=== PATIENT | female | born 1930 | race Caucasian/White ===

== ENCOUNTER → 2016-05-24 | Outpatient (CLI) | payer MEDICARE, OTHER | LOC: LAB 07:03 | DX: Z51.81 Encounter for therapeutic drug level monitoring (principal); Z79.01 Long term (current) use of anticoagulants; I48.91 Unspecified atrial fibrillation; I50.30 Unspecified diastolic (congestive) heart failure ==

== ENCOUNTER → 2016-06-21 | Outpatient (CLI) | payer MEDICARE, OTHER | LOC: VAS 16:36 | DX: I35.0 Nonrheumatic aortic (valve) stenosis (principal); I08.3 Combined rheumatic disorders of mitral, aortic and tricuspid valves ==

== ENCOUNTER → 2016-06-24 | Outpatient (CLI) | payer MEDICARE, OTHER | LOC: LAB 07:05 | DX: I50.30 Unspecified diastolic (congestive) heart failure (principal); I48.91 Unspecified atrial fibrillation ==

== ENCOUNTER → 2016-07-22 | Outpatient (CLI) | payer MEDICARE, OTHER | LOC: LAB 07:03 | DX: Z51.81 Encounter for therapeutic drug level monitoring (principal); Z79.01 Long term (current) use of anticoagulants; I48.91 Unspecified atrial fibrillation ==

== ENCOUNTER → 2016-08-23 | Outpatient (CLI) | payer MEDICARE, OTHER | LOC: LAB 08:18 | DX: Z51.81 Encounter for therapeutic drug level monitoring (principal); Z79.01 Long term (current) use of anticoagulants; I50.30 Unspecified diastolic (congestive) heart failure ==

== ENCOUNTER → 2016-09-06 | Outpatient (CLI) | payer MEDICARE, OTHER | LOC: LAB 07:32 | DX: Z51.81 Encounter for therapeutic drug level monitoring (principal); Z79.01 Long term (current) use of anticoagulants; I48.1 Persistent atrial fibrillation ==

== ENCOUNTER → 2016-10-01 | Outpatient (CLI) | payer MEDICARE, OTHER | LOC: LAB 07:11 | DX: Z51.81 Encounter for therapeutic drug level monitoring (principal); Z79.01 Long term (current) use of anticoagulants; I48.91 Unspecified atrial fibrillation; I10 Essential (primary) hypertension; I50.30 Unspecified diastolic (congestive) heart failure; Z00.00 Encounter for general adult medical examination without abnormal findings; R53.83 Other fatigue ==

== ENCOUNTER → 2016-10-15 | Outpatient (CLI) | payer MEDICARE, OTHER | LOC: LAB 07:07 | DX: Z51.81 Encounter for therapeutic drug level monitoring (principal); Z79.01 Long term (current) use of anticoagulants; I48.91 Unspecified atrial fibrillation; I50.30 Unspecified diastolic (congestive) heart failure ==

== ENCOUNTER → 2016-11-12 | Outpatient (CLI) | payer MEDICARE, OTHER | LOC: LAB 07:07 | DX: Z51.81 Encounter for therapeutic drug level monitoring (principal); Z79.01 Long term (current) use of anticoagulants; I48.91 Unspecified atrial fibrillation; I50.30 Unspecified diastolic (congestive) heart failure ==

== ENCOUNTER → 2016-12-10 | Outpatient (CLI) | payer MEDICARE, OTHER | LOC: LAB 07:19 | DX: Z51.81 Encounter for therapeutic drug level monitoring (principal); Z79.01 Long term (current) use of anticoagulants; I50.30 Unspecified diastolic (congestive) heart failure; I48.91 Unspecified atrial fibrillation ==

== ENCOUNTER → 2017-01-06 | Outpatient (CLI) | payer MEDICARE, OTHER | LOC: LAB 07:12 | DX: I48.91 Unspecified atrial fibrillation (principal) ==

== ENCOUNTER → 2017-01-17 | Outpatient (CLI) | payer MEDICARE, OTHER | LOC: LAB 07:21 | DX: I48.91 Unspecified atrial fibrillation (principal) ==

== ENCOUNTER → 2017-01-24 | Outpatient (CLI) | payer MEDICARE, OTHER | LOC: LAB 07:30 | DX: I48.91 Unspecified atrial fibrillation (principal) ==

== ENCOUNTER → 2017-02-23 | Outpatient (CLI) | payer MEDICARE, OTHER ==
[2017-02-23 09:42] LABS: PROTHROMBIN TIME 29.5 SECONDS (9.0-12.0)
== END ==
LOC: LAB 08:57
PROVIDERS: Family Medicine
DX: I48.91 Unspecified atrial fibrillation (principal)

== ENCOUNTER → 2017-03-28 | Outpatient (CLI) | payer MEDICARE, OTHER ==
[2017-03-28 07:59] LABS: PROTHROMBIN TIME 22.3 SECONDS (9.0-12.0)
== END ==
LOC: LAB 07:32
PROVIDERS: Family Medicine
DX: I48.91 Unspecified atrial fibrillation (principal); Z79.01 Long term (current) use of anticoagulants

== ENCOUNTER → 2017-04-25 | Outpatient (CLI) | payer MEDICARE, OTHER ==
[2017-04-25 10:31] LABS: PROTHROMBIN TIME 29.5 SECONDS (9.0-12.0)
== END ==
LOC: LAB 09:41
PROVIDERS: Family Medicine
DX: I48.91 Unspecified atrial fibrillation (principal)

== ENCOUNTER → 2017-05-23 | Outpatient (CLI) | payer MEDICARE, OTHER | LOC: LAB 07:12 | PROVIDERS: Family Medicine | DX: I48.91 Unspecified atrial fibrillation (principal) ==

== ENCOUNTER → 2017-06-20 | Outpatient (CLI) | payer MEDICARE, OTHER ==
[2017-06-20 09:35] LABS: PROTHROMBIN TIME 47.2 SECONDS (9.0-12.0)
== END ==
LOC: LAB 07:17
PROVIDERS: Family Medicine
DX: I48.91 Unspecified atrial fibrillation (principal)

== ENCOUNTER → 2017-06-27 | Outpatient (CLI) | payer MEDICARE, OTHER, MEDICAID ==
[2017-06-27 07:45] LABS: PROTHROMBIN TIME 21.2 SECONDS (9.0-12.0)
== END ==
LOC: LAB 07:20
PROVIDERS: Family Medicine
DX: I48.91 Unspecified atrial fibrillation (principal)

== ENCOUNTER → 2017-07-25 | Outpatient (CLI) | payer MEDICARE, MEDICAID | LOC: LAB 07:15 | PROVIDERS: Family Medicine | DX: I48.91 Unspecified atrial fibrillation (principal) ==

== ENCOUNTER → 2017-08-22 | Outpatient (CLI) | payer MEDICARE, MEDICAID ==
[2017-08-22 07:54] LABS: PROTHROMBIN TIME 24.8 SECONDS (9.0-12.0)
== END ==
LOC: LAB 07:24
PROVIDERS: Family Medicine
DX: I48.91 Unspecified atrial fibrillation (principal); Z88.1 Allergy status to other antibiotic agents; Z88.2 Allergy status to sulfonamides; Z88.8 Allergy status to other drugs, medicaments and biological substances

== ENCOUNTER → 2017-09-21 | Outpatient (CLI) | payer MEDICARE, MEDICAID ==
[2017-09-21 07:42] LABS: PROTHROMBIN TIME 20.9 SECONDS (9.0-12.0)
== END ==
LOC: LAB 07:19
PROVIDERS: Family Medicine
DX: I48.0 Paroxysmal atrial fibrillation (principal); Z79.01 Long term (current) use of anticoagulants

== ENCOUNTER → 2017-10-21 | Outpatient (CLI) | payer MEDICARE, MEDICAID ==
[2017-10-21 08:19] LABS: PROTHROMBIN TIME 24.7 SECONDS (9.0-12.0)
== END ==
LOC: LAB 07:13
PROVIDERS: Family Medicine
DX: I48.91 Unspecified atrial fibrillation (principal)

== ENCOUNTER 2017-11-15 14:04 | Emergency (ER) | payer MEDICARE, MEDICAID ==
[2017-11-15] MEDS ORDERED: AMLODIPINE BESY10 MG PO (14:24)
[2017-11-15] MEDS ORDERED: DOC-Q-LACE100 MG PO (14:25)
[2017-11-15] MEDS ORDERED: FUROSEMIDE20 MG PO (14:25)
[2017-11-15] MEDS ORDERED: GLUCOSAMINE & C1 TAB PO (14:25)
[2017-11-15] MEDS ORDERED: COENZYME Q-1030 MG PO (14:25)
[2017-11-15] MEDS ORDERED: DURAGESIC25 MCG/PAT TD (14:25)
[2017-11-15] MEDS ORDERED: MELATONIN5 M4 PO (14:26)
[2017-11-15] MEDS ORDERED: METOPROLOL SUCC25 M1 PO (14:26)
[2017-11-15] MEDS ORDERED: LOSARTAN POTAS100 MG PO (14:26)
[2017-11-15] MEDS ORDERED: WARFARIN SODIU7.5 MG PO (14:27)
[2017-11-15] MEDS ORDERED: SERTRALINE50 MG PO (14:27)
[2017-11-15 14:56] LABS: EOS % 0.8 % (1.0-5.0); HEMATOCRIT 31.1 % (37.0-47.0); HEMOGLOBIN 10.3 g/dL (12.5-16.0); MEAN CELL VOLUME 86 fl (78-100); MEAN CORPUSCULAR HEMOGLOBIN 29 pg (27-31); MEAN CORPUSCULAR HGB CONC 33 g/dL (33-37); MEAN PLATELET VOLUME 9.9 fl (7.4-10.4); MONO # 0.5 (0.20-0.80); NEU # 3.7 (1.40-6.50); PLATELET COUNT 214 K/mm3 (130-400); RED CELL DISTRIBUTION WIDTH 15.8 % (11.5-14.5); WHITE BLOOD COUNT 4.9 K/mm3 (4.8-10.8)
[2017-11-15 15:00] LABS: LYMPH# 0.6 (1.50-4.00)
[2017-11-15 15:08] LABS: BUN/CREATININE RATIO 24.2 (6.0-26.0); CALCIUM 8.4 mg/dL (8.4-10.2); POTASSIUM 4.5 mmol/L (3.6-5.0); TOTAL BILIRUBIN 0.7 mg/dL (0.2-1.3); TOTAL PROTEIN 7.2 g/dL (6.3-8.2)
[2017-11-15 15:14] LABS: PROTHROMBIN TIME 33.5 SECONDS (9.0-12.0)
[2017-11-15 15:21] LABS: D-DIMER 0.22 mg/L FEU (0.15-0.50)
[2017-11-15 15:32] LABS: URINE COLOR YELLOW
[2017-11-15 15:33] LABS: URINE APPEARANCE HAZY; URINE BILIRUBIN NEGATIVE (NEGATIVE); URINE BLOOD TRACE (NEGATIVE); URINE GLUCOSE NEGATIVE (NEGATIVE); URINE KETONE NEGATIVE (NEGATIVE); URINE LEUKOCYTE ESTERASE 2+ (NEGATIVE); URINE NITRATE NEGATIVE (NEGATIVE); URINE PROTEIN(semi-quant) 2+ mg/dL (NEGATIVE); URINE UROBILINOGEN NORMAL (NORMAL); URINE WBC >50 /hpf (0-3)
[2017-11-15 19:14] VITALS: BP 166/75
== END 2017-11-15 16:40 | disposition other institution (70) ==
LOC: ED 14:04
PROVIDERS: Physician Assistant
DX: I13.0 Hypertensive heart and chronic kidney disease with heart failure and stage 1 through stage 4 chronic kidney disease, or unspecified chronic kidney disease (principal); I50.31 Acute diastolic (congestive) heart failure; N18.9 Chronic kidney disease, unspecified; R09.02 Hypoxemia; N39.0 Urinary tract infection, site not specified; I48.91 Unspecified atrial fibrillation; I35.0 Nonrheumatic aortic (valve) stenosis; Z79.899 Other long term (current) drug therapy; Z79.01 Long term (current) use of anticoagulants
CPT/HCPCS: J1940

== ENCOUNTER 2017-11-18 17:39 | Inpatient (IN) | payer MEDICARE, MEDICAID ==
[~2017-11-18] VITALS: Ht 167.6 cm; Wt 84.9 kg
[~2017-11-18 17:39] MED LIST: AMLODIPINE BESY10 MG PO; COENZYME Q-1030 MG PO; DOC-Q-LACE100 MG PO; DURAGESIC25 MCG/PAT TD; FUROSEMIDE20 MG PO; GLUCOSAMINE & C1 TAB PO; LOSARTAN POTAS100 MG PO; MELATONIN5 M4 PO; METOPROLOL SUCC25 M1 PO; SERTRALINE50 MG PO; WARFARIN SODIU7.5 MG PO
[2017-11-18 18:42] VITALS: BP 168/63
[2017-11-18] MEDS ORDERED: ALBUTEROL2.5 MG/3 M IH (18:55)
[2017-11-18] MEDS ORDERED: CEFDINIR300 MG PO (18:56)
[2017-11-18] MEDS ORDERED: FUROSEMIDE20 MG PO (18:57)
[2017-11-18] MEDS ORDERED: ARTIFICIAL TEAR15 M7 OP (18:57)
[2017-11-18] MEDS ORDERED: MYLICON PO (18:57)
[2017-11-18] MEDS ORDERED: [UNRECOGNIZED DRUG - REMARK] TD (18:58)
[2017-11-19 06:21] VITALS: BP 169/73
[2017-11-19 18:25] VITALS: BP 145/55
[2017-11-20 06:39] VITALS: BP 162/70
[2017-11-20 18:41] VITALS: BP 151/68
[2017-11-21 06:19] VITALS: BP 157/74
[2017-11-21 19:06] VITALS: BP 143/58
[2017-11-21 21:04] LABS: URINE APPEARANCE CLEAR; URINE BILIRUBIN NEGATIVE (NEGATIVE); URINE COLOR YELLOW; URINE GLUCOSE NEGATIVE (NEGATIVE); URINE KETONE NEGATIVE (NEGATIVE); URINE PROTEIN(semi-quant) TRACE mg/dL (NEGATIVE); URINE UROBILINOGEN NORMAL (NORMAL)
[2017-11-21 21:05] LABS: URINE BLOOD NEGATIVE (NEGATIVE); URINE LEUKOCYTE ESTERASE 1+ (NEGATIVE); URINE NITRATE NEGATIVE (NEGATIVE)
[2017-11-22 05:57] VITALS: BP 156/64
[2017-11-22 19:14] VITALS: BP 148/53
[2017-11-23 07:15] VITALS: BP 150/55
[2017-11-23 18:27] VITALS: BP 136/57
[2017-11-24 06:30] VITALS: BP 170/70
[2017-11-24] MEDS ORDERED: FUROSEMIDE20 MG PO (06:51)
[2017-11-24] MEDS ORDERED: CEFDINIR300 MG PO (06:51)
[2017-11-24 09:38] VITALS: BP 170/70
== END 2017-11-24 10:35 | DRG 947 ==
LOC: MED/SURG 17:39
PROVIDERS: ADMIT Family Medicine
DX: R53.81 Other malaise (principal); I50.33 Acute on chronic diastolic (congestive) heart failure; I13.0 Hypertensive heart and chronic kidney disease with heart failure and stage 1 through stage 4 chronic kidney disease, or unspecified chronic kidney disease; N39.0 Urinary tract infection, site not specified; N18.9 Chronic kidney disease, unspecified; I35.0 Nonrheumatic aortic (valve) stenosis; I48.91 Unspecified atrial fibrillation; Z85.51 Personal history of malignant neoplasm of bladder

== ENCOUNTER → 2017-12-08 | Outpatient (CLI) | payer MEDICARE, MEDICAID ==
[2017-11-24 09:38] VITALS: BP 170/70
[~2017-12-08] MED LIST changes: +ALBUTEROL2.5 MG/3 M IH; +ARTIFICIAL TEAR15 M7 OP; +CEFDINIR300 MG PO; +MYLICON PO; +[UNRECOGNIZED DRUG - REMARK] TD
[2017-12-08 07:41] LABS: PROTHROMBIN TIME 20.1 SECONDS (9.0-12.0)
== END ==
LOC: LAB 07:19
PROVIDERS: Family Medicine
DX: I48.91 Unspecified atrial fibrillation (principal)

== ENCOUNTER 2018-01-02 18:15 | Observation (INO) | payer MEDICARE, MEDICAID ==
[~2018-01-02] VITALS: Ht 170.2 cm; Wt 86.5 kg
[~2018-01-02 18:15] MED LIST changes: -BENZONATATE200 MG PO; -COUGH DM30 MG/5 ML PO; -ICY HOT 7.6%-291 STI TP; -MACULAR HEALTH1 EACH PO; -MIRALAX17 GM PO; -PROBIOTIC1 EAC1 PO; -TYLENOL ARTHRI650 M2 PO; -ZOFRAN4 M2 PO
[2018-01-02 18:33] VITALS: BP 180/72
[2018-01-02 19:04] VITALS: BP 180/72
[2018-01-02 19:59] LABS: EOS % 0.7 % (1.0-5.0); HEMATOCRIT 33.8 % (37.0-47.0); HEMOGLOBIN 11.2 g/dL (12.5-16.0); LYMPH# 0.8 (1.50-4.00); MEAN CELL VOLUME 87 fl (78-100); MEAN CORPUSCULAR HEMOGLOBIN 29 pg (27-31); MEAN CORPUSCULAR HGB CONC 33 g/dL (33-37); MEAN PLATELET VOLUME 10.3 fl (7.4-10.4); MONO # 0.5 (0.20-0.80); NEU # 3.2 (1.40-6.50); PLATELET COUNT 203 K/mm3 (130-400); RED BLOOD COUNT 3.87 M/mm3 (4.10-5.30); RED CELL DISTRIBUTION WIDTH 15.5 % (11.5-14.5); WHITE BLOOD COUNT 4.5 K/mm3 (4.8-10.8)
[2018-01-02 20:02] LABS: ALBUMIN 4.3 g/dL (3.5-5.0); CALCIUM 8.8 mg/dL (8.4-10.2); POTASSIUM 4.1 mmol/L (3.6-5.0); TOTAL BILIRUBIN 0.7 mg/dL (0.2-1.3); TOTAL PROTEIN 7.2 g/dL (6.3-8.2)
[2018-01-02 20:08] LABS: PROTHROMBIN TIME 32.4 SECONDS (9.0-12.0)
[2018-01-02] MEDS ORDERED: COENZYME Q-1030 MG PO (20:37)
[2018-01-02] MEDS ORDERED: MACULAR HEALTH1 EACH PO (20:38)
[2018-01-02] MEDS ORDERED: MIRALAX17 GM PO (21:34)
[2018-01-02] MEDS ORDERED: TYLENOL ARTHRI650 M2 PO (21:35)
[2018-01-02] MEDS ORDERED: BENZONATATE200 MG PO (21:36)
[2018-01-02] MEDS ORDERED: COUGH DM30 MG/5 ML PO (21:37)
[2018-01-02] MEDS ORDERED: PROBIOTIC1 EAC1 PO (21:38)
[2018-01-02] MEDS ORDERED: ICY HOT 7.6%-291 STI TP (21:38)
[2018-01-02] MEDS ORDERED: ZOFRAN4 M2 PO (21:39)
[2018-01-02 22:39] VITALS: BP 168/72
[2018-01-03 03:03] VITALS: BP 160/77
[2018-01-03 06:24] VITALS: BP 168/76
[2018-01-03 08:36] LABS: CALCIUM 8.5 mg/dL (8.4-10.2)
[2018-01-03 11:15] VITALS: BP 154/61
[2018-01-03 15:18] VITALS: BP 152/73
[2018-01-03 17:48] VITALS: BP 145/75
[2018-01-03 22:35] VITALS: BP 136/72
[2018-01-04 03:03] VITALS: BP 169/70
[2018-01-04 06:24] VITALS: BP 161/73
[2018-01-04 06:44] LABS: PROTHROMBIN TIME 31.3 SECONDS (9.0-12.0)
[2018-01-04 08:36] LABS: POTASSIUM 3.8 mmol/L (3.6-5.0)
[2018-01-04 08:47] LABS: HEMATOCRIT 34.7 % (37.0-47.0); HEMOGLOBIN 11.8 g/dL (12.5-16.0); MEAN CELL VOLUME 88 fl (78-100); MEAN CORPUSCULAR HEMOGLOBIN 30 pg (27-31); MEAN CORPUSCULAR HGB CONC 34 g/dL (33-37); MEAN PLATELET VOLUME 9.8 fl (7.4-10.4); PLATELET COUNT 214 K/mm3 (130-400); RED BLOOD COUNT 3.95 M/mm3 (4.10-5.30)
[2018-01-04 08:50] LABS: ALBUMIN 4.1 g/dL (3.5-5.0); TOTAL PROTEIN 7.2 g/dL (6.3-8.2)
[2018-01-04 09:08] LABS: LYMPHOCYTE 13 % (20-51); MONOCYTE 7 % (3-10); NEUTROPHILS 79 % (42-75)
[2018-01-04 11:00] VITALS: BP 149/72
== END 2018-01-04 12:30 | disposition other institution (70) ==
LOC: MED/SURG 18:15
PROVIDERS: Nurse Practitioner Primary Care; ADMIT Family Medicine
DX: K56.609 Unspecified intestinal obstruction, unspecified as to partial versus complete obstruction (principal); K56.7 Ileus, unspecified; I13.0 Hypertensive heart and chronic kidney disease with heart failure and stage 1 through stage 4 chronic kidney disease, or unspecified chronic kidney disease; I50.9 Heart failure, unspecified; N18.9 Chronic kidney disease, unspecified; R73.03 Prediabetes; M54.5 Low back pain; G89.29 Other chronic pain; I48.91 Unspecified atrial fibrillation; Z79.01 Long term (current) use of anticoagulants; I35.0 Nonrheumatic aortic (valve) stenosis; Z79.899 Other long term (current) drug therapy; K59.00 Constipation, unspecified
CPT/HCPCS: G0378; G0379; J1940; J7030

== ENCOUNTER → 2018-01-02 | Outpatient (CLI) | payer MEDICARE, MEDICAID ==
[~2018-01-02] MED LIST changes: +BENZONATATE200 MG PO; +COUGH DM30 MG/5 ML PO; +ICY HOT 7.6%-291 STI TP; +MACULAR HEALTH1 EACH PO; +MIRALAX17 GM PO; +PROBIOTIC1 EAC1 PO; +TYLENOL ARTHRI650 M2 PO; +ZOFRAN4 M2 PO
== END ==
LOC: RAD 16:47
DX: R14.0 Abdominal distension (gaseous) (principal)

== ENCOUNTER 2018-01-04 12:30 | Inpatient (IN) | payer MEDICARE, MEDICAID ==
[~2018-01-04] VITALS: Ht 170.2 cm; Wt 80.1 kg
[~2018-01-04 12:30] MED LIST changes: +BENZONATATE200 MG PO; +COUGH DM30 MG/5 ML PO; +ICY HOT 7.6%-291 STI TP; +MACULAR HEALTH1 EACH PO; +MIRALAX17 GM PO; +PROBIOTIC1 EAC1 PO; +TYLENOL ARTHRI650 M2 PO; +ZOFRAN4 M2 PO
[2018-01-04 13:38] VITALS: BP 145/68
[2018-01-04 14:23] VITALS: BP 145/68
[2018-01-04 15:04] VITALS: BP 145/68
[2018-01-04 18:29] VITALS: BP 147/69
[2018-01-04 23:00] VITALS: BP 137/67
[2018-01-05 03:03] VITALS: BP 159/71
[2018-01-05 06:07] VITALS: BP 153/66
[2018-01-05 07:47] LABS: EOS # 0.1 (0.04-0.40); EOS % 3.4 % (1.0-5.0); HEMATOCRIT 31.4 % (37.0-47.0); HEMOGLOBIN 10.5 g/dL (12.5-16.0); LYMPH# 0.6 (1.50-4.00); MEAN CELL VOLUME 87 fl (78-100); MEAN CORPUSCULAR HEMOGLOBIN 29 pg (27-31); MEAN CORPUSCULAR HGB CONC 33 g/dL (33-37); MEAN PLATELET VOLUME 10.1 fl (7.4-10.4); MONO # 0.5 (0.20-0.80); NEU # 2.9 (1.40-6.50); PLATELET COUNT 210 K/mm3 (130-400); RED CELL DISTRIBUTION WIDTH 14.9 % (11.5-14.5); WHITE BLOOD COUNT 4.2 K/mm3 (4.8-10.8)
[2018-01-05 08:11] LABS: CALCIUM 8.4 mg/dL (8.4-10.2); POTASSIUM 3.3 mmol/L (3.6-5.0)
[2018-01-05 10:55] VITALS: BP 150/71
[2018-01-05 14:44] VITALS: BP 160/69
[2018-01-05 18:35] VITALS: BP 144/62
[2018-01-05 22:52] VITALS: BP 159/73
[2018-01-06 02:41] VITALS: BP 161/65
[2018-01-06 06:19] VITALS: BP 162/72
[2018-01-06 06:41] LABS: HEMATOCRIT 33.4 % (37.0-47.0); HEMOGLOBIN 11.4 g/dL (12.5-16.0); MEAN CELL VOLUME 86 fl (78-100); MEAN CORPUSCULAR HEMOGLOBIN 29 pg (27-31); MEAN CORPUSCULAR HGB CONC 34 g/dL (33-37); MEAN PLATELET VOLUME 9.5 fl (7.4-10.4); PLATELET COUNT 235 K/mm3 (130-400); RED BLOOD COUNT 3.88 M/mm3 (4.10-5.30); RED CELL DISTRIBUTION WIDTH 14.9 % (11.5-14.5); WHITE BLOOD COUNT 3.2 K/mm3 (4.8-10.8)
[2018-01-06 06:53] LABS: LYMPHOCYTE 23 % (20-51); MONOCYTE 8 % (3-10); NEUTROPHILS 64 % (42-75); OVALOCYTES 1+
[2018-01-06 07:15] LABS: CALCIUM 8.7 mg/dL (8.4-10.2); POTASSIUM 3.4 mmol/L (3.6-5.0)
[2018-01-06 09:58] LABS: PROTHROMBIN TIME 73.9 SECONDS (9.0-12.0)
[2018-01-06 11:09] VITALS: BP 149/90
[2018-01-06 12:34] LABS: PROTHROMBIN TIME 83.5 SECONDS (9.0-12.0)
[2018-01-06 15:27] VITALS: BP 153/73
[2018-01-06 18:20] VITALS: BP 123/64
[2018-01-06 23:10] VITALS: BP 165/77
[2018-01-07 03:00] VITALS: BP 162/78
[2018-01-07 06:21] VITALS: BP 152/77
[2018-01-07] MEDS ORDERED: POTASSIUM CHLO20 ME3 PO (06:56)
[2018-01-07] MEDS ORDERED: MYLICON PO (06:56)
[2018-01-07] MEDS ORDERED: WARFARIN SOD5 MG PO (06:56)
[2018-01-07] MEDS ORDERED: WARFARIN SODIU7.5 MG PO (06:56)
[2018-01-07 09:44] LABS: PROTHROMBIN TIME 16.9 SECONDS (9.0-12.0)
[2018-01-07 10:48] LABS: CALCIUM 9.3 mg/dL (8.4-10.2); POTASSIUM 3.9 mmol/L (3.6-5.0)
[2018-01-07] MEDS ORDERED: AQUAPHOR BABY HEA41% TP (11:05)
[2018-01-07] MEDS ORDERED: DESENEX2% TP (11:06)
[2018-01-07 11:21] VITALS: BP 154/72
[2018-01-07 15:16] VITALS: BP 135/77
== END 2018-01-07 16:28 | DRG 388 ==
LOC: MED/SURG 12:30
PROVIDERS: Nurse Practitioner Family; Nurse Practitioner Primary Care; ADMIT Family Medicine
DX: K56.7 Ileus, unspecified (principal); I50.33 Acute on chronic diastolic (congestive) heart failure; I13.0 Hypertensive heart and chronic kidney disease with heart failure and stage 1 through stage 4 chronic kidney disease, or unspecified chronic kidney disease; N18.9 Chronic kidney disease, unspecified; I48.91 Unspecified atrial fibrillation; I35.0 Nonrheumatic aortic (valve) stenosis; Z79.01 Long term (current) use of anticoagulants; E87.6 Hypokalemia; M54.5 Low back pain; L30.9 Dermatitis, unspecified; B35.4 Tinea corporis; B35.6 Tinea cruris
CPT/HCPCS: J7030

== ENCOUNTER → 2018-01-12 | Outpatient (CLI) | payer MEDICARE, MEDICAID ==
[2018-01-07 15:16] VITALS: BP 135/77
[~2018-01-12] MED LIST changes: +AQUAPHOR BABY HEA41% TP; +DESENEX2% TP; +POTASSIUM CHLO20 ME3 PO; +WARFARIN SOD5 MG PO
[2018-01-12 09:01] LABS: CALCIUM 9.3 mg/dL (8.4-10.2); POTASSIUM 4.3 mmol/L (3.6-5.0)
[2018-01-12 09:02] LABS: PROTHROMBIN TIME 23.5 SECONDS (9.0-12.0)
== END ==
LOC: LAB 08:23 → RAD 08:23
PROVIDERS: Family Medicine
DX: K59.00 Constipation, unspecified (principal)

== ENCOUNTER → 2018-01-26 | Outpatient (CLI) | payer MEDICARE, MEDICAID ==
[2018-01-07 15:16] VITALS: BP 135/77
[2018-01-26 07:42] LABS: CALCIUM 9.3 mg/dL (8.4-10.2); POTASSIUM 4.5 mmol/L (3.6-5.0)
[2018-01-26 08:18] LABS: PROTHROMBIN TIME 39.1 SECONDS (9.0-12.0)
== END ==
LOC: LAB 07:18
PROVIDERS: Family Medicine
DX: I50.9 Heart failure, unspecified (principal); I48.91 Unspecified atrial fibrillation

== ENCOUNTER → 2018-02-09 | Outpatient (CLI) | payer MEDICARE, MEDICAID ==
[2018-02-09 08:10] LABS: PROTHROMBIN TIME 21.4 SECONDS (9.0-12.0)
== END ==
LOC: LAB 07:06
PROVIDERS: Family Medicine
DX: I48.91 Unspecified atrial fibrillation (principal)

== ENCOUNTER → 2018-02-24 | Outpatient (CLI) | payer MEDICARE, MEDICAID | LOC: RAD 15:11 | DX: K63.89 Other specified diseases of intestine (principal); R10.9 Unspecified abdominal pain; R14.0 Abdominal distension (gaseous) ==

== ENCOUNTER 2018-03-06 09:16 | Emergency (ER) | payer MEDICARE, MEDICAID ==
[~2018-03-06 09:16] MED LIST changes: +LEADER MELATONIN5 MG PO; -MELATONIN5 M4 PO; +SERTRALINE HYDR25 MG PO; -SERTRALINE50 MG PO
[2018-03-06 09:43] LABS: HEMATOCRIT 32.7 % (37.0-47.0); HEMOGLOBIN 10.9 g/dL (12.5-16.0); MEAN CELL VOLUME 87 fl (78-100); MEAN CORPUSCULAR HEMOGLOBIN 29 pg (27-31); MEAN CORPUSCULAR HGB CONC 33 g/dL (33-37); MEAN PLATELET VOLUME 9.9 fl (7.4-10.4); PLATELET COUNT 204 K/mm3 (130-400); RED BLOOD COUNT 3.75 M/mm3 (4.10-5.30); RED CELL DISTRIBUTION WIDTH 15.1 % (11.5-14.5); WHITE BLOOD COUNT 5.1 K/mm3 (4.8-10.8)
[2018-03-06 10:11] LABS: TROPONIN-I < 0.03 ng/mL (0.00-0.06)
[2018-03-06 10:13] LABS: ALBUMIN 4.3 g/dL (3.5-5.0); CALCIUM 9.3 mg/dL (8.4-10.2); LYMPHOCYTE 13 % (20-51); MONOCYTE 3 % (3-10); NEUTROPHILS 84 % (42-75); POTASSIUM 4.5 mmol/L (3.6-5.0); TOTAL BILIRUBIN 1.1 mg/dL (0.2-1.3); TOTAL PROTEIN 7.2 g/dL (6.3-8.2)
[2018-03-06 10:24] LABS: PROTHROMBIN TIME 49.5 SECONDS (9.0-12.0)
[2018-03-06 12:00] VITALS: BP 143/64
[2018-03-06] MEDS ORDERED: FUROSEMIDE40 MG PO (12:36)
[2018-03-06] MEDS ORDERED: LOTRIMIN AF90 GM TOP (12:37)
[2018-03-06] MEDS ORDERED: ACETAMINOPHEN325 M1 PO (12:38)
[2018-03-06] MEDS ORDERED: NATURE'S TEARS15 M2 OP (12:40)
[2018-03-06] MEDS ORDERED: POTASSIUM CHLO10 ME5 PO (12:44)
[2018-03-06] MEDS ORDERED: WARFARIN SOD5 MG PO (12:45)
[2018-03-06] MEDS ORDERED: WARFARIN SODIU7.5 MG PO (12:46)
== END 2018-03-06 12:27 | disposition other institution (70) ==
LOC: ED 09:16
PROVIDERS: Nurse Practitioner Primary Care
DX: K56.600 Partial intestinal obstruction, unspecified as to cause (principal); I13.0 Hypertensive heart and chronic kidney disease with heart failure and stage 1 through stage 4 chronic kidney disease, or unspecified chronic kidney disease; I50.9 Heart failure, unspecified; D63.1 Anemia in chronic kidney disease; I48.91 Unspecified atrial fibrillation; Z79.01 Long term (current) use of anticoagulants; Z79.899 Other long term (current) drug therapy; I35.0 Nonrheumatic aortic (valve) stenosis; Z85.51 Personal history of malignant neoplasm of bladder
CPT/HCPCS: Q9967

== ENCOUNTER → 2018-03-11 | Outpatient (CLI) | payer MEDICARE, MEDICAID ==
[2018-03-10 11:00] VITALS: BP 107/66
[~2018-03-11] MED LIST changes: +ACETAMINOPHEN325 M1 PO; +FUROSEMIDE40 MG PO; +LOTRIMIN AF90 GM TOP; +NATURE'S TEARS15 M2 OP; +POTASSIUM CHLO10 ME5 PO
[2018-03-11 22:21] LABS: URINE APPEARANCE HAZY; URINE BILIRUBIN NEGATIVE (NEGATIVE); URINE COLOR YELLOW; URINE GLUCOSE NEGATIVE (NEGATIVE); URINE KETONE NEGATIVE (NEGATIVE); URINE NITRATE NEGATIVE (NEGATIVE); URINE PROTEIN(semi-quant) 2+ mg/dL (NEGATIVE); URINE UROBILINOGEN NORMAL (NORMAL)
[2018-03-11 22:22] LABS: URINE BLOOD 50 ery/uL (NEGATIVE); URINE LEUKOCYTE ESTERASE 1+ (NEGATIVE)
== END ==
LOC: LAB 20:28
PROVIDERS: Internal Medicine
DX: N30.00 Acute cystitis without hematuria (principal)

== ENCOUNTER → 2018-03-12 | Outpatient (CLI) | payer MEDICARE, MEDICAID ==
[2018-03-10 11:00] VITALS: BP 107/66
[2018-03-12 09:43] LABS: PROTHROMBIN TIME 46.7 SECONDS (9.0-12.0)
== END ==
LOC: LAB 08:59
PROVIDERS: Family Medicine
DX: I48.91 Unspecified atrial fibrillation (principal)

== ENCOUNTER → 2018-03-13 | Outpatient (CLI) | payer MEDICARE, MEDICAID ==
[2018-03-10 11:00] VITALS: BP 107/66
[2018-03-13 11:01] LABS: PROTHROMBIN TIME 12.6 SECONDS (9.0-12.0)
== END ==
LOC: LAB 10:14
PROVIDERS: Family Medicine
DX: I48.91 Unspecified atrial fibrillation (principal)

== ENCOUNTER → 2018-03-20 | Outpatient (CLI) | payer MEDICARE, MEDICAID ==
[2018-03-10 11:00] VITALS: BP 107/66
[2018-03-20 12:02] LABS: PROTHROMBIN TIME 13.8 SECONDS (9.0-12.0)
== END ==
LOC: LAB 10:59
PROVIDERS: Family Medicine
DX: I48.91 Unspecified atrial fibrillation (principal)

== ENCOUNTER → 2018-04-03 | Outpatient (CLI) | payer MEDICARE, MEDICAID ==
[2018-03-10 11:00] VITALS: BP 107/66
[2018-04-03 11:18] LABS: CALCIUM 9.3 mg/dL (8.4-10.2); POTASSIUM 4.6 mmol/L (3.6-5.0)
[2018-04-03 11:27] LABS: PROTHROMBIN TIME 20.7 SECONDS (9.0-12.0)
== END ==
LOC: LAB 10:47
PROVIDERS: Family Medicine
DX: I48.91 Unspecified atrial fibrillation (principal); N30.00 Acute cystitis without hematuria

== ENCOUNTER → 2018-04-11 | Outpatient (CLI) | payer MEDICARE, MEDICAID ==
[2018-03-10 11:00] VITALS: BP 107/66
[2018-04-11 15:45] LABS: EOS # 0.1 (0.04-0.40); EOS % 1.3 % (1.0-5.0); HEMATOCRIT 33.1 % (37.0-47.0); HEMOGLOBIN 10.8 g/dL (12.5-16.0); MEAN CELL VOLUME 89 fl (78-100); MEAN CORPUSCULAR HEMOGLOBIN 29 pg (27-31); MEAN CORPUSCULAR HGB CONC 33 g/dL (33-37); MEAN PLATELET VOLUME 9.4 fl (7.4-10.4); MONO # 0.4 (0.20-0.80); NEU # 3.6 (1.40-6.50); PLATELET COUNT 218 K/mm3 (130-400); RED BLOOD COUNT 3.74 M/mm3 (4.10-5.30); WHITE BLOOD COUNT 4.7 K/mm3 (4.8-10.8)
[2018-04-11 15:48] LABS: LYMPH# 0.6 (1.50-4.00)
[2018-04-11 16:03] LABS: ALBUMIN 4.4 g/dL (3.5-5.0); CALCIUM 8.9 mg/dL (8.4-10.2); POTASSIUM 4.4 mmol/L (3.6-5.0); TOTAL PROTEIN 7.1 g/dL (6.3-8.2)
== END ==
LOC: RAD 14:38
PROVIDERS: Physician Assistant
DX: I51.7 Cardiomegaly (principal); R09.89 Other specified symptoms and signs involving the circulatory and respiratory systems; R06.00 Dyspnea, unspecified; I48.91 Unspecified atrial fibrillation; I35.0 Nonrheumatic aortic (valve) stenosis; I11.0 Hypertensive heart disease with heart failure; I50.30 Unspecified diastolic (congestive) heart failure

== ENCOUNTER → 2018-04-14 | Outpatient (CLI) | payer MEDICARE, MEDICAID ==
[2018-03-10 11:00] VITALS: BP 107/66
[2018-04-14 08:52] LABS: ALBUMIN 4.4 g/dL (3.5-5.0); CALCIUM 9.2 mg/dL (8.4-10.2); POTASSIUM 4.7 mmol/L (3.6-5.0); TOTAL PROTEIN 7.2 g/dL (6.3-8.2)
== END ==
LOC: LAB 06:59
PROVIDERS: Family Medicine
DX: I50.30 Unspecified diastolic (congestive) heart failure (principal); R06.00 Dyspnea, unspecified; I48.91 Unspecified atrial fibrillation; I10 Essential (primary) hypertension; I35.0 Nonrheumatic aortic (valve) stenosis

== ENCOUNTER → 2018-04-28 | Outpatient (CLI) | payer MEDICARE, MEDICAID ==
[2018-03-10 11:00] VITALS: BP 107/66
[2018-04-28 07:44] LABS: CALCIUM 8.9 mg/dL (8.4-10.2); POTASSIUM 4.7 mmol/L (3.6-5.0)
== END ==
LOC: LAB 07:11
PROVIDERS: Family Medicine
DX: I13.0 Hypertensive heart and chronic kidney disease with heart failure and stage 1 through stage 4 chronic kidney disease, or unspecified chronic kidney disease (principal); N18.9 Chronic kidney disease, unspecified